=== PATIENT | male | born 1950 | race Caucasian/White ===

== ENCOUNTER → 2016-06-29 | Outpatient (CLI) | payer MEDICARE, OTHER ==
[~2016-06-29] MED LIST: AMBIEN5 MG PO; ASPIRIN81 MG PO; ATROVENT INH S2.5 ML INH; BUDESONIDE0.5 MG/2 M INH; CYMBALTA60 MG PO; DALIRESP500 MCG PO; ELIQUIS5 MG PO; ISORDIL TAB 3030 MG PO; KLONOPIN TAB 00.5 MG PO; LANOXIN TAB 00.25 MG PO; LIPITOR TAB 1010 MG PO; LOPRESSOR50 MG PO; NEURONTIN 100100 MG PO; NORVASC 5 MG TAB5 MG PO; OMEPRAZOLE20 MG PO; PAIN RELIEVER500 MG PO; PERFOROMIS20 MCG/2 M INH; PROAIR HFA8.5 GM INH; SPIRIVA18 MCG INH; TIKOSYN500 MCG PO; TRAMADOL HCL50 MG PO; VENTOLIN/PROVE0.5 ML INH
== END ==
LOC: HEART 5 06-08 11:30
DX: I48.0 Paroxysmal atrial fibrillation (principal); I10 Essential (primary) hypertension; R07.9 Chest pain, unspecified; I51.7 Cardiomegaly
CPT/HCPCS: 93306